=== PATIENT | male | born 1950 | race Caucasian/White ===

== ENCOUNTER 2016-10-10 09:55 | Day surgery (SDC) | payer OTHER ==
[~2016-10-10 09:55] MED LIST: RINGERS SOLUTION,LACTATED 1,000 ML IV PRN
[2016-10-10] MEDS ORDERED: RINGERS SOLUTION,LACTATED 1,000 ML IV ONE (13:00)
[2016-10-10] MEDS ORDERED: PANTOPRAZOLE SODIUM 40 MG in NORMAL SALINE 100 ML IV ONE (13:31)
[2016-10-10] MEDS ORDERED: RINGERS SOLUTION,LACTATED 1,000 ML IV PRN (13:31)
[2016-10-10] MEDS ORDERED: PANTOPRAZOLE SODIUM 40 MG/100 ML PIGGYBACK IV ONE (13:41)
[2016-10-10 14:07] VITALS: BP 164/89
--- NOTE | 2016-10-10 19:18 | OR ---
Operative Report - Dictated Report Narrative: Operative Report Date of operation: 10/10/2016 Preoperative diagnosis: Heme positive stool. No recent dedicated colon studies Postoperative diagnosis: Significant gastropathy (CLOtest pending). Pedunculated colon polyp at 20 cm and additional smaller polyp at 15 cm. Diverticulosis Operation: EGD with biopsy for CLOtest. Colonoscopy to the cecum Surgeon: Dr Mckee Anesthesia: EDNA WALKER CRNA Indications for procedure: The patient is a 66-year-old male referred by Dr. Elaine. The patient performed a male in Hemoccult test which was positive. His last colonoscopy was normal in 2004. There is no family history of colon polyps. The patient has not seen blood in his stool or had abdominal pain. He does have significant GERD symptoms requiring medication. The patient has a history of atrial fibrillation and is on Coumadin. He has factor V Leiden. He has had previous episodes of DVT and pulmonary embolism. Findings: Very significant gastropathy with evidence of chronic low-grade hemorrhage (CLOtest pending). 0.5 cm pedunculated polyp at 20 cm with 4 mm polyp at 15 cm. Significant diverticulosis, capacious colon, otherwise normal colonoscopy to the cecum Narrative of procedure: The patient was identified preoperatively, and prior to the administration of anesthetic a multidisciplinary timeout was observed EGD: With the patient in the recumbent position, a bite-block was placed, intravenous sedation was administered, and the patient's eyes covered with a towel. The flexible fiberoptic gastroscope was advanced into the posterior pharynx which appeared normal. There was crowding of the posterior pharynx relieved by jaw thrust maneuver. The supraglottic larynx appeared normal. The cords appeared normal, moved well, and opposed in the midline. The scope was advanced under direct vision into the proximal esophagus which appeared normal. The esophagus appeared freely distensible with normal mucosa. The esophageal mucosa appeared normal down to the gastroesophageal junction which was sharp and noninflamed. The GE junction appeared normally distensible. The scope was advanced into the stomach which was insufflated with air. Immediately apparent was marked diego gastric erythema with several areas of submucosal hemorrhage, but no santos ulcerations or neoplastic lesions were apparent including a retroflexed view of the gastric fundus. The scope was redirected toward the pylorus. The pylorus appeared patent. The scope was advanced into the duodenal bulb which appeared normal. The scope was advanced further to the horizontal portion of the duodenum which appeared normal, specifically the villous architecture appeared well preserved and clear bile was present. The scope was slowly withdrawn through the duodenal bulb with confirmation that no active ulcer was present. The scope was withdrawn into the stomach and a retail wireless sales representative biopsy of gastric mucosa obtained for CLOtest. The biopsy site was observed and appeared to be hemostatic. The insufflated air was removed, the scope withdrawn from the patient, and this portion of the procedure terminated. COLONOSCOPY: The patient was then placed in the left lateral position, and the perineum was inspected. There was no evidence of pilonidal disease or skin breakdown. The external appearance of the anus was normal. Sphincter tone was good. The flexible fiberoptic colonoscope was inserted into the rectum which was insufflated with air. The rectal mucosa and submucosal vascular pattern appeared normal, the prep was seen to be complete. The scope was advanced proximally to approximately 15 cm where a 3 mm area of polypoid change was encountered. This was bypassed. At 20 cm a pedunculated 0.5 cm polyp was encountered. This was bypassed. The scope was advanced through the sigmoid colon which contained numerous large non-impacted noninflamed diverticular openings. The scope was advanced up the descending colon, and around the splenic flexure where the triangular haustral architecture of the transverse colon was seen. The scope was advanced across the transverse colon, around the hepatic flexure to the cecum, where the confluence of tenia and the ileocecal valve were identified. The mucosa at this level appeared normal. The scope was then slowly withdrawn in a circular fashion so that all aspects of colonic mucosa were inspected. The colon was capacious in character requiring use of standard reduction maneuvers and gentle external manual compression on the abdomen to reach the cecum. The haustral architecture appeared well preserved throughout with no evidence of external compression. The mucosa and submucosal vascular pattern appeared normal, specifically there was no gross evidence to suggest colitis or inflammatory bowel disease and no AV malformations were seen. The diverticulosis was moderate to severe in degree and involved primarily sigmoid colon. No polyps proximal to 20 cm were encountered. The scope was gradually withdrawn to the level of the rectum. As much insufflated air as possible was removed. The scope was withdrawn from the patient and the procedure terminated. The patient tolerated the anesthetic and procedure well without complication and was transferred back to the ambulatory surgery area awake and in stable condition. The patient remained stable throughout a period of postoperative observation. He denied abdominal discomfort, was able to tolerate by mouth intake, and was up without assistance. I shared the operative findings with the patient and he was given copies of the photographs which appear in the medical record. He was discharged home with instructions not to engage in hazardous activity today, but may resume normal activity tomorrow, and advance diet as tolerated. He is to continue those medications as listed in the history and physical exam. I made arrangements to contact him with the CLOtest report and will make additional recommendations for treatment and follow-up based upon that result. RECOMMENDATION: I advised the patient that the colon polyps will need to be addressed, and as we had previously discussed this will require cessation of his anticoagulation with bridging. Because the lesions are low a complete colon prep may not be necessary for sigmoidoscopy. Reviewed and electronically signed
== END 2016-10-10 09:56 | disposition home or self-care (01) ==
LOC: AMB 09:55
PROVIDERS: ATTEND Surgery
PROC: 0DB68ZX Excision of Stomach, Via Natural or Artificial Opening Endoscopic, Diagnostic (ICD-10-PCS; principal; 2016-10-10 12:15)
PROC: 0DJD8ZZ Inspection of Lower Intestinal Tract, Via Natural or Artificial Opening Endoscopic (ICD-10-PCS; 2016-10-10 12:15)
DX: Z12.11 Encounter for screening for malignant neoplasm of colon (principal); K92.1 Melena; K63.5 Polyp of colon; K57.30 Diverticulosis of large intestine without perforation or abscess without bleeding; K29.70 Gastritis, unspecified, without bleeding; I10 Essential (primary) hypertension; K21.9 Gastro-esophageal reflux disease without esophagitis; E78.5 Hyperlipidemia, unspecified; E11.9 Type 2 diabetes mellitus without complications; J45.909 Unspecified asthma, uncomplicated; D68.51 Activated protein C resistance; M19.90 Unspecified osteoarthritis, unspecified site; N40.0 Benign prostatic hyperplasia without lower urinary tract symptoms; E66.01 Morbid (severe) obesity due to excess calories; Z68.41 Body mass index [BMI] 40.0-44.9, adult; Z87.891 Personal history of nicotine dependence